=== PATIENT | male | born 1985 | race African-American/Black ===

== ENCOUNTER 2017-01-04 21:10 | Observation (INO) | payer OTHER ==
[~2017-01-04] VITALS: Ht 175.3 cm; Wt 80.8 kg
[~2017-01-04 21:10] MED LIST: BACTRIM,SEPT1 TABLET PO; BACTROBAN OINTM22 GM TP; CEFDINIR300 MG PO; UNABLEOBTAIN
[2017-01-04] MEDS ORDERED: RISPERDAL4 MG PO (22:26)
[2017-01-04] MEDS ORDERED: CIMETIDINE800 MG PO (22:26)
[2017-01-04] MEDS ORDERED: MELATIN3 MG PO (22:26)
[2017-01-04] MEDS ORDERED: TRILEPTAL600 MG PO (22:27)
[2017-01-04] MEDS ORDERED: VITAMIN D400 UNI1 PO (22:27)
[2017-01-04] MEDS ORDERED: CATAPRES0.1 MG PO (22:27)
[2017-01-04] MEDS ORDERED: DEPAKOTE ER250 MG PO (22:27)
[2017-01-04 22:28] LABS: HEMATOCRIT 32.7 % (38.0-50.0); MCHC 32.1 G/DL (30.0-36.0); MCV 87.2 FL (86-99); MEAN PLAT.VOLUME 10.9 uM^3 (9.0-12.4); PLATELET COUNT 127 K/uL (156-360); RBC DIS.WIDTH-CV 14.9 % (11.8-14.6); RED BLOOD COUNT 3.75 M/uL (4.00-5.50); WHITE BLOOD COUNT 3.3 K/uL (4.1-10.2)
[2017-01-04] MEDS ORDERED: TYLENOL REGULA325 MG PO (22:28)
[2017-01-04 22:38] LABS: CHLORIDE 108 mEq/L (99-109); POTASSIUM 4.1 mEq/L (3.7-5.4); SODIUM 143 mEq/L (136-147)
[2017-01-04 22:41] LABS: GLUCOSE 102 mg/dL (70-99)
[2017-01-04 22:42] LABS: ANION GAP 8 MEQ/L (2-14); TOTAL BILIRUBIN 0.2 mg/dL (0.0-1.0)
[2017-01-04 22:43] LABS: SERUM ETHYL ALCOHOL < 10 mg/dL
[2017-01-04 22:44] LABS: ALKALINE PHOSPHATASE 30 IU/L (3-129); GFR ESTIMATE (CALCULATED) > 59 mL/min/
[2017-01-04 22:45] LABS: UREA NITROGEN (BUN) 15 mg/dL (9-23)
[2017-01-04] MEDS ORDERED: AMOXICILLIN500 MG PO (22:50)
[2017-01-04] MEDS ORDERED: ROBITUSSIN100 MG/5 M PO (22:50)
[2017-01-05 00:45] VITALS: BP 107/69
[2017-01-05 03:00] VITALS: BP 103/65
[2017-01-05 06:59] LABS: HEMATOCRIT 32.3 % (38.0-50.0); MCH 28.9 PG (29.0-34.0); MCHC 32.8 G/DL (30.0-36.0); MEAN PLAT.VOLUME 10.9 uM^3 (9.0-12.4); PLATELET COUNT 112 K/uL (156-360); RBC DIS.WIDTH-CV 15.2 % (11.8-14.6); RBC DIS.WIDTH-SD 48.7 % (39-53); RED BLOOD COUNT 3.67 M/uL (4.00-5.50); WHITE BLOOD COUNT 4.2 K/uL (4.1-10.2)
[2017-01-05 07:35] LABS: ALKALINE PHOSPHATASE 29 IU/L (3-129); ANION GAP 9 MEQ/L (2-14); CHLORIDE 107 MEQ/L (99-109); GFR ESTIMATE (CALCULATED) > 59 mL/min/; GLUCOSE 81 mg/dL (70-99); POTASSIUM 3.9 MEQ/L (3.7-5.4); SAMPLE HEMOLYSIS CHECK 0; SAMPLE ICTERIC CHECK 0; SAMPLE LIPEMIA CHECK 0; SODIUM 145 MEQ/L (136-147); TOTAL BILIRUBIN 0.2 MG/DL (0.0-1.0); UREA NITROGEN (BUN) 14 mg/dL (9-23)
[2017-01-05 07:41] VITALS: BP 137/94
[2017-01-05 11:14] VITALS: BP 121/78
[2017-01-05 15:50] VITALS: BP 105/72
== END 2017-01-05 15:56 | disposition home or self-care (01) ==
LOC: EME 21:10 → EDOF 23:45 → 4EAST 23:45
PROVIDERS: Emergency Medicine; Internal Medicine
DX: R00.1 Bradycardia, unspecified (principal); F84.0 Autistic disorder; F79 Unspecified intellectual disabilities; T42.6X4A Poisoning by other antiepileptic and sedative-hypnotic drugs, undetermined, initial encounter; T47 Poisoning by, adverse effect of and underdosing of agents primarily affecting the gastrointestinal system
CPT/HCPCS: 80053; 80164; 81003; 85027; 93005; 99281; 99284; G0378; G0480

== ENCOUNTER → 2017-01-13 | Outpatient (CLI) | payer OTHER ==
[~2017-01-13] MED LIST changes: +AMOXICILLIN500 MG PO; +CATAPRES0.1 MG PO; +CIMETIDINE800 MG PO; +DEPAKOTE ER250 MG PO; +MELATIN3 MG PO; +RISPERDAL4 MG PO; +ROBITUSSIN100 MG/5 M PO; +TRILEPTAL600 MG PO; +TYLENOL REGULA325 MG PO; +VITAMIN D400 UNI1 PO
== END | disposition home or self-care (01) ==
DX: R13.10 Dysphagia, unspecified (principal)
CPT/HCPCS: 92611 GN